=== PATIENT | male | born 1960 | race Caucasian/White ===

== ENCOUNTER 2018-05-21 21:45 | Emergency (ER) | payer MEDICAID ==
[~2018-05-21] VITALS: Ht 193 cm; Wt 169.2 kg
[~2018-05-21 21:45] MED LIST: ACET-2165 PO; DOCU-144 PO; GLUXR500 PO; GLYB5TAB7 PO; IBUP-1017 PO; LISI10TA5 PO; TRAM50TA92 PO
[2018-05-21 22:04] VITALS: BP_SYST 163
[2018-05-21 23:10] VITALS: BP_SYST 148
== END 2018-05-21 23:10 | disposition home or self-care (01) ==
LOC: SED 21:45
DX: R05 Cough (principal); R06.02 Shortness of breath; J44.9 Chronic obstructive pulmonary disease, unspecified; E11.9 Type 2 diabetes mellitus without complications; F17.200 Nicotine dependence, unspecified, uncomplicated; R03.0 Elevated blood-pressure reading, without diagnosis of hypertension; Z90.49 Acquired absence of other specified parts of digestive tract; Z79.899 Other long term (current) drug therapy
CPT/HCPCS: 99283

== ENCOUNTER 2019-11-07 02:59 | Emergency (ER) | payer MEDICAID, SELFPAY ==
[~2019-11-07] VITALS: Ht 193 cm; Wt 181.4 kg
[~2019-11-07 02:59] MED LIST changes: -ACET-2165 PO; +ACET325T PO
--- NOTE | 2019-11-07 03:05 | NUR ---
Patient to ER bed 4 to gown for evaluation. Side rails up. Report given to GIOVANI BARRAGAN.
[2019-11-07 03:06] VITALS: BP_SYST 176
--- NOTE | 2019-11-07 03:10 | NUR ---
ER at bedside examining patient.
--- NOTE | 2019-11-07 03:16 | NUR ---
Pt presents to the ER c/o left toe injury x today. Pt states sink fell on his toe and patient did not feel any pain due to his neuropathy. Pt L toe appears to have hematoma under the toe. Pt states wanting to get toe checked out due to not having any sensation. Pt is SOB from walking from the car, hx of COPD and did not bring his O2 tank. Pt has hx of DM and DVT.
--- NOTE | 2019-11-07 03:20 | NUR ---
Resiratory called for duo neb treatment as per Dr Paez.
--- NOTE | 2019-11-07 03:30 | NUR ---
Respiratory at bedside.
--- NOTE | 2019-11-07 03:36 | NUR ---
Radiology at bedside.
[2019-11-07] MEDS ORDERED: IPRATROPIUM/ALBUTEROL SULFATE 3 ML AMPUL.NEB (DUONEB) ONE (03:50)
[2019-11-07] MEDS: IPRATROPIUM/ALBUTEROL SULFATE 3 ML AMPUL.NEB (DUONEB) INH ONE (03:50)
[2019-11-07 04:12] LABS: BASOPHILS # (AUTO) 0.1 K/uL (0.0-0.2); BASOPHILS % (AUTO) 0.8 % (0.0-2.0); EOSINOPHILS # (AUTO) 0.3 K/uL (0.0-0.4); EOSINOPHILS % (AUTO) 2.8 % (0.0-4.0); HEMATOCRIT 41.5 % (36-54); HEMOGLOBIN 13.9 g/dL (14.0-18.0); LYMPHOCYTES # (AUTO) 2.3 K/uL (1.0-5.5); LYMPHOCYTES % (AUTO) 24.1 % (20.5-51.5); MEAN CORPUSCULAR HEMOGLOBIN 33 pg (27-31); MEAN CORPUSCULAR HGB CONC 34 % (32-36); MEAN CORPUSCULAR VOLUME 98 fL (79.0-98.0); MONOCYTES # (AUTO) 0.6 K/uL (0.0-1.0); MONOCYTES % (AUTO) 6.6 % (1.7-9.3); NEUTROPHILS # (AUTO) 6.2 K/uL (1.8-7.7); NEUTROPHILS % (AUTO) 65.7 % (40.0-70.0); PLATELET COUNT (AUTO) 190 K/uL (130-430); RED BLOOD CELL COUNT(AUTO) 4.22 MIL/uL (4.2-6.2); RED CELL DISTRIBUTION WIDTH 15.5 % (9.0-15.0); WHITE BLOOD COUNT (AUTO) 9.4 K/uL (4.8-10.8)
[2019-11-07 04:24] LABS: CALCIUM 8.4 mg/dL (8.4-11.0); CREATININE 1.25 mg/dL (0.55-1.30); POTASSIUM 4.2 mmol/L (3.5-5.1)
--- NOTE | 2019-11-07 04:29 | NUR ---
Covid swab done at the bedside.Pt tolerated well.
[2019-11-07 04:44] LABS: ALBUMIN 3.1 g/dL (3.4-4.8); TOTAL BILIRUBIN 0.3 mg/dL (0.0-1.0)
--- NOTE | 2019-11-07 05:10 | NUR ---
Pt given foot boot to stabilize fracture as per Dr Paez
[2019-11-07 05:50] VITALS: BP_SYST 176
--- NOTE | 2019-11-07 05:50 | NUR ---
Patient given written and verbal discharge instructions and verbalizes understanding. ER MD discussed with patient the results and treatment provided. Patient in stable condition. ID arm band removed. Rx of Doxycycline given. Patient educated on pain management and to follow up with PMD. Opportunity for questions provided and answered. Medication side effect fact sheet provided.
== END 2019-11-07 05:50 | disposition home or self-care (01) ==
LOC: SED 02:59
DX: S92.422A Displaced fracture of distal phalanx of left great toe, initial encounter for closed fracture (principal); J18.9 Pneumonia, unspecified organism; E11.65 Type 2 diabetes mellitus with hyperglycemia; J44.9 Chronic obstructive pulmonary disease, unspecified; Z79.899 Other long term (current) drug therapy; Z20.828 Contact with and (suspected) exposure to other viral communicable diseases
CPT/HCPCS: 36415; 71045; 80053; 83880; 84484; 85025; 93005; 94640; 99285

== ENCOUNTER 2020-06-17 18:16 | Emergency (ER) | payer OTHER, MEDICAID ==
[~2020-06-17] VITALS: Ht 193 cm; Wt 181.4 kg
[~2020-06-17 18:16] MED LIST changes: +LISI10TA29 PO; -LISI10TA5 PO
[2020-06-17 18:24] VITALS: BP_SYST 154
[2020-06-17 19:19] LABS: BASOPHILS # (AUTO) 0.1 K/uL (0.0-0.2); BASOPHILS % (AUTO) 0.6 % (0.0-2.0); EOSINOPHILS # (AUTO) 0.3 K/uL (0.0-0.4); EOSINOPHILS % (AUTO) 2.7 % (0.0-4.0); HEMATOCRIT 44.2 % (36-54); HEMOGLOBIN 14.9 g/dL (14.0-18.0); LYMPHOCYTES # (AUTO) 2.8 K/uL (1.0-5.5); LYMPHOCYTES % (AUTO) 25.9 % (20.5-51.5); MEAN CORPUSCULAR HEMOGLOBIN 32 pg (27-31); MEAN CORPUSCULAR HGB CONC 34 % (32-36); MEAN CORPUSCULAR VOLUME 95 fL (79.0-98.0); MONOCYTES # (AUTO) 0.6 K/uL (0.0-1.0); MONOCYTES % (AUTO) 5.8 % (1.7-9.3); PLATELET COUNT (AUTO) 212 K/uL (130-430); RED BLOOD CELL COUNT(AUTO) 4.66 MIL/uL (4.2-6.2); RED CELL DISTRIBUTION WIDTH 15.2 % (9.0-15.0); WHITE BLOOD COUNT (AUTO) 10.7 K/uL (4.8-10.8)
[2020-06-17 19:22] LABS: BILIRUBIN,URINE NEGATIVE (NEGATIVE); BLOOD, URINE 1+ (NEGATIVE); CLARITY/URINE CLEAR (CLEAR); COLOR,URINE YELLOW (YELLOW); GLUCOSE,URINE 3+ (NEGATIVE); KETONES,URINE NEGATIVE (NEGATIVE); LEUKOCYTE ESTERASE ,URINE NEGATIVE (NEGATIVE); NITRITE, URINE NEGATIVE (NEGATIVE); PH,URINE 5.5 (5.0-8.0); PROTEIN URINE 1+ (NEGATIVE); UROBILINOGEN,URINE 0.2 (0.2-1.0)
[2020-06-17 19:25] LABS: CALCIUM 8.6 mg/dL (8.4-11.0); CREATININE 1.48 mg/dL (0.55-1.30); POTASSIUM 4.5 mmol/L (3.5-5.1)
[2020-06-17 19:31] LABS: ALBUMIN 3.2 g/dL (3.4-4.8); TOTAL BILIRUBIN 0.3 mg/dL (0.0-1.0)
[2020-06-17 19:34] LABS: BACTERIA,URINE RARE /HPF (None Seen); MUCUS,URINE None Seen /LPF (None Seen); WBC,URINE 0-3 /HPF (0-3)
[2020-06-17 22:27] VITALS: BP_SYST 125
== END 2020-06-17 22:27 | disposition home or self-care (01) ==
LOC: SED 18:16
DX: N43.3 Hydrocele, unspecified (principal); N50.811 Right testicular pain; N50.812 Left testicular pain
CPT/HCPCS: 36415; 76870-TC; 80053; 81000; 83605; 85025; 87040-TC; 99284